=== PATIENT | female | born 1960 | race Caucasian/White ===

== ENCOUNTER 2021-05-29 07:25 | Outpatient (CLI) | payer MEDICARE, MEDICAID ==
[~2021-05-29 07:25] MED LIST: BISA-77 PO; DIAZ2TAB PO; HYDR1TAB PO; IBUP-812 PO; LEVA15HF4 IH; NAPR375T PO; WALKERFR; ZOLP5TAB8 PO
== END 2021-05-29 23:59 | disposition home or self-care (01) ==
LOC: RAD 07:25
PROVIDERS: ATTEND Psychiatry & Neurology Neurology
DX: Q85.01 Neurofibromatosis, type 1 (principal)
CPT/HCPCS: 95816

== ENCOUNTER 2024-03-14 08:17 | Emergency (ER) | payer MEDICARE, MEDICAID ==
[~2024-03-14] VITALS: Ht 147.3 cm; Wt 48.0 kg
[2024-03-14 08:22] VITALS: BP 117/66; PULSE 92; RESP 18; O2SAT 96
[2024-03-14] MEDS ORDERED: ONDA-243 PO (09:23)
[2024-03-14] MEDS ORDERED: PHE12.5R RC (09:23)
[2024-03-14] MEDS ORDERED: AZIT250T82 PO (09:23)
[2024-03-14] MEDS ORDERED: ALBU18HF2 INH (09:23)
[2024-03-14] MEDS ORDERED: PRED20TA PO (09:23)
[2024-03-14] MEDS: ondansetron/PF 4mg/2ml inj IM ONE (09:26)
[2024-03-14 09:35] VITALS: TEMP 97.9
== END 2024-03-14 09:36 | disposition home or self-care (01) ==
LOC: ER 08:17
DX: J44.1 Chronic obstructive pulmonary disease with (acute) exacerbation (principal); E78.00 Pure hypercholesterolemia, unspecified; F12.90 Cannabis use, unspecified, uncomplicated; Z88.0 Allergy status to penicillin; Z88.2 Allergy status to sulfonamides; Z88.5 Allergy status to narcotic agent; Z90.710 Acquired absence of both cervix and uterus; Z98.890 Other specified postprocedural states
CPT/HCPCS: 96372; 99283; J2405